=== PATIENT | male | born 1965 | race Caucasian/White ===

== ENCOUNTER → 2017-09-13 | Outpatient (CLI) | payer BC ==
--- NOTE | 2017-09-13 12:50 | Diagnostic Imaging Report ---
PROCEDURE: MRI lumbar spine. TECHNIQUE: Multiplanar, multisequence MRI of the lumbar spine was performed without contrast. INDICATION: Back pain. FINDINGS: There is satisfactory alignment of the lumbar spine. The vertebral body heights are preserved. There is disc desiccation at L3/L4 level. Minimal disc height loss at this level is seen. There is mild disc height loss at L5/S1. At L4/L5, there is evidence of posterior fusion hardware with susceptibility artifact seen. Anterior fusion is seen with suggestion of osseous bridging between the 2 vertebral bodies. The cauda equina and conus medullaris appear grossly unremarkable. There is prominent endplate edema around L5/S1 level. T12/L1: There is no disc herniation. Mild facet hypertrophy is seen. No central canal, lateral recess or foraminal stenosis. L1/L2: There is no disc herniation. There is bilateral moderate facet hypertrophy. No central canal, lateral recess or foraminal stenosis. L2/L3: There is no disc herniation. There is mild facet hypertrophy. No central canal or lateral recess stenosis. No foraminal stenosis. L3/L4: There is a diffuse disc bulge. Bilateral moderate facet hypertrophy is seen. No central canal stenosis. There is bilateral mild lateral recess stenosis. There is bilateral mild foraminal stenosis. L4/L5: Fusion changes between the vertebral bodies are seen. No remaining central canal stenosis is seen. There is mild left lateral recess stenosis suggested with an impression upon the thecal sac from intermediate signal tissue which could relate to scarring. No remaining disc fragment or definite significant osteophyte is evident. The foramina demonstrate bilateral mild stenosis. L5/S1: There is a central disc protrusion without significant spinal canal stenosis. No lateral recess stenosis. The foramina demonstrate bilateral moderate stenoses. IMPRESSION: There is bilateral moderate foraminal stenosis at L5/S1. Post fusion changes at L4/L5 level are also seen. No significant spinal canal stenosis is present at any level. Dictated by: Dictated on workstation # [id number]
--- NOTE | 2017-09-13 13:06 | Diagnostic Imaging Report ---
Multiplanar, multisequence MRI of the thoracic spine. INDICATION: Back pain. FINDINGS: There is satisfactory alignment of the posterior spinal line. The vertebral body heights are preserved. There is minimal desiccation in the mid thoracic spine. The spinal cord is normal in caliber, contour and signal. The bone marrow signal is generally normal except for mild endplate edema along the anterior aspect of the T5-T6 disc. T6-T7: There is a left paracentral focal disc extrusion with no significant associated spinal canal stenosis or cord compression. T7-T8: There is a minimal central disc protrusion with no significant spinal canal stenosis or cord compression. T11-T12: There is an annular tear posteriorly and a left paracentral disc protrusion with minimal cranial migration component. No significant spinal canal stenosis or cord compression. The neural foramina are patent at all levels. IMPRESSION: Mild disc herniations in the mid and lower thoracic spine as described. No significant spinal canals stenosis or cord compression at any level. Dictated by: Dictated on workstation # [id number]
--- NOTE | 2017-09-13 13:16 | Diagnostic Imaging Report ---
PROCEDURE: MR imaging cervical spine without contrast. TECHNIQUE: Multiplanar, multisequence MR imaging of the cervical spine was performed without contrast. INDICATION: Neck pain. FINDINGS: There is straightening of the cervical spine. There is minimal posterior translation of C5 over C6. The vertebral body heights are preserved. There is disc desiccation seen at all levels. No significant marrow signal abnormality is seen. The spinal cord has normal caliber, contour, and signal. The foramen magnum and the upper cervical canal are widely patent. C2-C3: No disc herniation, no spinal canal or foraminal stenosis. C3-C4: No disc herniation, no spinal canal or foraminal stenosis. C4-C5: There is a mild right paracentral disc spur complex with no significant spinal canal stenosis. The foramina demonstrate bilateral kujvtuqr-ce-houqec stenosis. C5-C6: There is a prominent disc spur complex with associated qbpuherw-rt-mwtbyx spinal canal stenosis reducing the AP dimension of the canal to 6.8 mm and with associated minimal compression of the spinal cord. No cord signal abnormality or edema is evident. There is bilateral severe foraminal stenosis from uncovertebral and facet hypertrophy seen. C6-C7: No disc herniation, no spinal canal or foraminal stenosis. C7-T1: Unremarkable. IMPRESSION: There is hxerrnhj-yg-pmcozs spinal canal stenosis at the C5-C6 level with minimal cord compression. No cord signal abnormality. There is also bilateral severe foraminal stenosis at this level. Dictated by: Dictated on workstation # [id number]
== END ==
LOC: RAD 07:40
PROVIDERS: ATTEND Family Medicine
DX: M54.2 Cervicalgia (principal); M54.6 Pain in thoracic spine; M54.5 Low back pain
CPT/HCPCS: 72141; 72146; 72148

== ENCOUNTER → 2020-07-20 | Outpatient (CLI) | payer BC ==
--- NOTE | 2020-07-20 11:09 | Diagnostic Imaging Report ---
PROCEDURE: MRI lumbar spine. TECHNIQUE: Multiplanar, multisequence MRI of the lumbar spine was performed without contrast. INDICATION: Chronic low back pain. Patient has had prior lumbar spine surgery. COMPARISON: Correlation is made with prior MRI of the lumbar spine from 09/13/2017. FINDINGS: Curvature and alignment of the lumbar spine is normal. Vertebral body heights are maintained. No acute compression fracture is identified. No geographic marrow lesion is identified. There are postoperative changes of posterior instrumented fusion with vertical stabilization rods and pedicle screws transfixing the L4-L5 level. This does create moderate susceptibility artifact. There is some loss of height and signal intensity to the L3-L4 disc compatible with degenerative disc disease. This is similar to prior exam. The conus is unremarkable at the L1 level. T12-L1: Central canal is widely patent. Neural foramina are patent. L1-T2: Central canal is widely patent. Neural foramina appear patent. L2-L3: Central canal is patent. Neural foramina are patent. L3-L4: Broad-based disc/osteophyte complex flattens the ventral thecal sac. There is significant narrowing of the lateral recesses bilaterally. There is also moderate bilateral neural foraminal stenosis. L4-L5: Central canal appears widely patent. There appears to be lateral recess narrowing bilaterally. Neural foramina are patent. L5-S1: Central canal is patent. Dmro-nj-eknbnqfs bilateral neural foraminal stenosis is noted. Paraspinous tissues are unremarkable. IMPRESSION: 1. Postoperative changes of L4-L5 posterior instrumented fusion. 2. Lumbar spondylosis with mild lateral recess and neural foraminal narrowing described level by level above. Overall appearance of the lumbar spine is very similar to prior exam from 09/13/2017. Dictated by: Dictated on workstation # [id number]
== END ==
LOC: RAD 09:30
PROVIDERS: ATTEND Family Medicine
DX: M47.816 Spondylosis without myelopathy or radiculopathy, lumbar region (principal); M48.07 Spinal stenosis, lumbosacral region; M51.36 Other intervertebral disc degeneration, lumbar region; Z98.890 Other specified postprocedural states
CPT/HCPCS: 72148

== ENCOUNTER → 2022-03-09 | Outpatient (CLI) | payer BC ==
[~2022-03-09] VITALS: Ht 180 cm; Wt 106.8 kg
[~2022-03-09] MED LIST: ACETAMINOPHEN 500 MG TAB (TYLENOL) PO PRN; ASPI-999 PO; BEBTELOVIMAB 175 MG/2 ML VIAL IV ONE; EPINEPHrine INJECTION 1 MG/ML AMP IM PRN; MULT-974 PO; ONDANSETRON 4 MG/2 ML (SDV) Z0FRAN IV PRN; diphenhydrAMINE 50 MG/ML INJ (BENADRYL) IV PRN
[2022-03-09 09:00] VITALS: BP 132/87
[2022-03-09 09:05] VITALS: BP 132/87
[2022-03-09 10:38] VITALS: BP 125/79
== END ==
LOC: INFUSION 08:45
PROVIDERS: ATTEND Nurse Practitioner Family
DX: U07.1 COVID-19 (principal)

== ENCOUNTER 2022-03-23 05:41 | Outpatient (CLI) | payer BC ==
[~2022-03-23] VITALS: Ht 180.3 cm; Wt 106.8 kg
[2022-03-27] MEDS ORDERED: ASPI-999 PO (16:17)
[2022-03-27] MEDS ORDERED: MULT-974 PO (16:17)
== END 2022-03-27 16:45 | disposition home or self-care (01) ==
LOC: PREOP 05:41
PROVIDERS: ATTEND Surgery
DX: Z01.818 Encounter for other preprocedural examination (principal)

== ENCOUNTER 2022-03-29 18:23 | Emergency (ER) | payer BC ==
[~2022-03-29] VITALS: Ht 180 cm; Wt 106.5 kg
[~2022-03-29 18:23] MED LIST changes: -ACETAMINOPHEN 500 MG TAB (TYLENOL) PO PRN; -BEBTELOVIMAB 175 MG/2 ML VIAL IV ONE; -EPINEPHrine INJECTION 1 MG/ML AMP IM PRN; -ONDANSETRON 4 MG/2 ML (SDV) Z0FRAN IV PRN; -diphenhydrAMINE 50 MG/ML INJ (BENADRYL) IV PRN
[2022-03-29] MEDS ORDERED: KETOROLAC 30 MG/ML VIAL IVP STA (18:33)
--- NOTE | 2022-03-29 18:39 | ED Abdominal Pain ---
General Chief Complaint: Abdominal/GI Problems Stated Complaint: HERNIA Source of Information: Patient History of Present Illness Date Seen by Provider: March 29, 2022 Time Seen by Provider: 18:29 Initial Comments PT ARRIVES VIA POV STATES HE WAS DRIVING HOME FROM [place] AND HAD SUDDEN SEVERE PAIN IN LOWER ABDOMEN/GENITAL/TESTICULAR/GROIN AREA, RADIATING UP TO LEFT FLANK OCCURRED AROUND 1700 PAIN WAS EXCRUCIATING ABOUT 30 MINUTES AGO, IS NOT GONE BUT IS BETTER NOW. RATES PAIN 8/10 AT WORST, 5/10 NOW NO NAUSEA/VOMITING NO URINARY SYMPTOMS NO FEVER PT IS SCHEDULED TO HAVE AN UMBILICAL HERNIA REPAIR BY DR. GATICA AT 0700 IN THE MORNING. THIS PAIN TODAY IS NOT IN UMBILICAL AREA NO HISTORY OF SIMILAR TOOK SIMETHICONE WITHOUT RELIEF. PCP: DR. ZULEYKA SAM Allergies and Home Medications Allergies Coded Allergies: Penicillins (Verified Allergy, Unknown, heart burn, 03/27/22) meperidine (Verified Allergy, Unknown, dry heaving, 03/27/22) Patient Home Medication List Home Medication List Reviewed: Yes Aspirin (Aspirin) 81 Mg Tab.chew, 81 MG PO DAILY, (Reported) Entered as Reported by: KEVIN JOSE on 03/27/221616 Hydrocodone Bit/Acetaminophen (HYDROcodone/APAP 7.5/325 TAB) 1 Ea Tablet, 1 EA PO Q4-6 PRN for PAIN Prescribed by: KRISTINE ANGEL on 03/29/221913 Ketorolac Tromethamine (Ketorolac Tromethamine) 10 Mg Tablet, 10 MG PO Q6H Prescribed by: KRISTINE ANGEL on 03/29/221912 Levofloxacin (Levofloxacin) 500 Mg Tablet, 500 MG PO DAILY Prescribed by: KRISTINE ANGEL on 03/29/221912 Multivitamin (Multi-Vitamin Daily) 1 Each Tablet, 1 EACH PO DAILY, (Reported) Entered as Reported by: KEVIN JOSE on 03/27/221616 Ondansetron (Ondansetron Odt) 8 Mg Tab.rapdis, 8 MG PO Q4H PRN for NAUSEA/VOMITING Prescribed by: KRISTINE ANGEL on 03/29/221912 Tamsulosin HCl (Flomax) 0.4 Mg Cap, 0.4 MG PO DAILY Prescribed by: KRISTINE ANGEL on 03/29/221912 Review of Systems Review of Systems Constitutional: no symptoms reported Respiratory: No Symptoms Reported Cardiovascular: No Symptoms Reported Gastrointestinal: See HPI, Abdominal Pain Genitourinary: See HPI Musculoskeletal: see HPI, back pain Skin: no symptoms reported Psychiatric/Neurological: No Symptoms Reported Endocrine: No Symptoms Reported Hematologic/Lymphatic: No Symptoms Reported Past Gdtjdar-Mihqtu-Eqexai Hx Patient Social History Tobacco Use?: No Substance use?: No Alcohol Use?: No Seasonal Allergies Seasonal Allergies: Yes Past Medical History Surgeries: Yes (BACK SX X3, ELDER FUNDOPLICATION) Abdominal, Orthopedic Respiratory: Yes (COVID-19 -[place] WITH MAB INFUSION 03/09/22) Sleep Apnea Currently Using CPAP: Yes Cardiac: No Neurological: No Reproductive Disorders: No Sexually Transmitted Disease: No Genitourinary: No Gastrointestinal: Yes (UMBILICAL HERNIA) Abdominal Hernia, Gastroesophageal Reflux, Hiatal Hernia Musculoskeletal: No Endocrine: No HEENT: No Cancer: Yes Skin Did You Recieve Any Treatments: Yes What Type of Treatment Did You: Surgical Intervention Psychosocial: No Integumentary: No Blood Disorders: No Adverse Reaction/Blood Tranf: No Family Medical History PAST SURGICAL HISTORY: -L4-L5 FUSION -LUMBAR DISCECTOMY -C4-C5 FUSION -LAP ELDER FUNDOPLICATION Physical Exam Vital Signs Vital Signs - First Documented 03/29/22 18:30 Temp 36.5 Pulse 95 Resp 20 B/P (MAP) 167/118 (134) Pulse Ox 96 O2 Delivery Room Air Capillary Refill : Height/Weight/BMI Height: 5'10" Weight: 200lbs. oz. [id number]; 32.85 BMI Method: General Appearance: WD/WN, no apparent distress, other (SITTING ON SIDE OF BED, DOES NOT APPEAR TO BE IN ANY DISCOMFORT OR DISTRESS AT THIS TIME) Respiratory: normal breath sounds, no respiratory distress, no accessory muscle use Cardiovascular: regular rate, rhythm, no murmur Gastrointestinal: normal bowel sounds, non tender, soft, no organomegaly, no pulsatile mass, hernia (SMALL, SOFT, PARTIALLY REDUICIBLE UMBILICAL HERNIA, NON- TENDER, NON-INFLAMED. ) Extremities: normal inspection Back: normal inspection, no CVA tenderness Neurologic/Psychiatric: online journalist II-XII nml as tested, no motor/sensory deficits, alert, normal mood/affect, oriented x 3 Skin: normal color, warm/dry; No rash Progress/Results/Core Measures Results/Orders Lab Results Laboratory Tests Test 03/29/22 18:36 03/29/22 19:19 Range/Units White Blood Count 6.5 4.3-11.0 10^3/uL Red Blood Count 5.40 4.30-5.52 10^6/uL Hemoglobin 16.8 13.3-17.7 g/dL Hematocrit 48 40-54 % Mean Corpuscular Volume 89 80-99 fL Mean Corpuscular Hemoglobin 31 25-34 pg Mean Corpuscular Hemoglobin Concent 35 32-36 g/dL Red Cell Distribution Width 12.2 10.0-14.5 % Platelet Count 194 130-400 10^3/uL Mean Platelet Volume 10.2 9.0-12.2 fL Immature Granulocyte % (Auto) 0 % Neutrophils (%) (Auto) 69 42-75 % Lymphocytes (%) (Auto) 23 12-44 % Monocytes (%) (Auto) 7 0-12 % Eosinophils (%) (Auto) 1 0-10 % Basophils (%) (Auto) 0 0-10 % Neutrophils # (Auto) 4.5 1.8-7.8 10^3/uL Lymphocytes # (Auto) 1.5 1.0-4.0 10^3/uL Monocytes # (Auto) 0.4 0.0-1.0 10^3/uL Eosinophils # (Auto) 0.1 0.0-0.3 10^3/uL Basophils # (Auto) 0.0 0.0-0.1 10^3/uL Immature Granulocyte # (Auto) 0.0 0.0-0.1 10^3/uL Sodium Level 141 135-145 MMOL/L Potassium Level 4.1 3.6-5.0 MMOL/L Chloride Level 106 98-107 MMOL/L Carbon Dioxide Level 21 21-32 MMOL/L Anion Gap 14 5-14 MMOL/L Blood Urea Nitrogen 22 H 7-18 MG/DL Creatinine 1.52 H 0.60-1.30 MG/DL Estimat Glomerular Filtration Rate 54 BUN/Creatinine Ratio 14 Glucose Level 102 70-105 MG/DL Calcium Level 9.9 8.5-10.1 MG/DL Corrected Calcium 8.5-10.1 MG/DL Total Bilirubin 0.4 0.1-1.0 MG/DL Aspartate Amino Transf (AST/SGOT) 30 5-34 U/L Alanine Aminotransferase (ALT/SGPT) 35 0-55 U/L Alkaline Phosphatase 94 40-136 U/L Total Protein 8.1 6.4-8.2 GM/DL Albumin 4.7 H 3.2-4.5 GM/DL Amylase Level 87 25-125 U/L Lipase 69 8-78 U/L Urine Color YELLOW Urine Clarity CLEAR Urine pH 5.5 5-9 Urine Specific [place] 1.025 H 1.016-1.022 Urine Protein NEGATIVE NEGATIVE Urine Glucose (UA) NEGATIVE NEGATIVE Urine Ketones NEGATIVE NEGATIVE Urine Nitrite NEGATIVE NEGATIVE Urine Bilirubin NEGATIVE NEGATIVE Urine Urobilinogen 0.2 < = 1.0 MG/DL Urine Leukocyte Esterase NEGATIVE NEGATIVE Urine RBC (Auto) 1+ H NEGATIVE Urine RBC 2-5 H /HPF Urine WBC 5-10 H /HPF Urine Squamous Epithelial Cells NONE /HPF Urine Renal Epithelial Cells NONE /HPF Urine Crystals NONE /LPF Urine Bacteria NEGATIVE /HPF Urine Casts NONE /LPF Urine Mucus SMALL H /LPF Urine Culture Indicated NO My Orders Orders - KRISTINE ANGEL DO Ed Iv/Invasive Line Start (03/29/22 18:29) Amylase (03/29/22 18:29) Cbc With Automated Diff (03/29/22 18:29) Comprehensive Metabolic Panel (03/29/22 18:29) Lipase (03/29/22 18:29) Ua Culture If Indicated (03/29/22 18:29) Ct Abd/Pelvis Wo(Kidney Stone) (03/29/22 18:33) Acute Abd Series (03/29/22 18:33) Ed Iv/Invasive Line Start (03/29/22 18:33) Lactated Ringers (Lr 1000 Ml Iv Solution (03/29/22 18:45) Ketorolac Injection (Toradol Injection) (03/29/22 18:33) Tamsulosin Capsule (Flomax Capsule) (03/29/22 19:15) Hydrocodone/Apap 5/325 Tablet (Lortab 5 (03/29/22 19:15) Morphine Injection (Morphine Injection (03/29/22 19:04) Medications Given in ED Current Medications Medications Dose Ordered Sig/Andrew Route Start Time Stop Time Status Last Admin Dose Admin Acetaminophen/ Hydrocodone Bitart 1 ea ONCE ONCE PO 03/29/22 19:15 03/29/22 19:16 DC 03/29/22 19:30 1 EA Lactated Ringer's 1,000 ml @ 0 mls/hr Q0M ONCE IV 03/29/22 18:45 03/29/22 18:46 DC 03/29/22 18:39 0 MLS/HR Vital Signs/I&O 03/29/22 18:30 Temp 36.5 Pulse 95 Resp 20 B/P (MAP) 167/118 (134) Pulse Ox 96 O2 Delivery Room Air Progress Progress Note : Progress Note GIVEN IV FLUIDS AND TORADOL WITH MODERATE RELIEF OF PAIN--RATES PAIN 01/19 NOW GIVEN MORPHINE GIVEN FLOMAX AND HYDROCODONE Diagnostic Imaging Comments CT ABDOMEN/PELVIS--PER RADIOLOGIST REPORT AT 1904 FINDINGS: The heart is unremarkable. The lung bases are clear. A 0.4 cm calculus is seen in the distal left ureter with mild left-sided hydroureteronephrosis. No hydronephrosis on the right. The urinary bladder is nondistended. The liver, spleen, pancreas and adrenal glands have a normal appearance. There is no pathologically enlarged mesenteric or retroperitoneal adenopathy. The bowel loops are nondilated. The appendix is visualized in the right lower quadrant and has a normal appearance. There is no free fluid or free air. No acute osseous abnormalities. Posterior fusion changes are visualized at L4-L5. There is no free air, loculated collection or adenopathy in the pelvis. IMPRESSION: Obstructing calculus in the distal left ureter measuring 0.4 cm with mild left-sided hydroureteronephrosis. Reviewed: Reviewed by Me Departure Communication (Admissions) 1855--SPOKE WITH DR. SALTER, UROLOGIST, HE WILL SEE PT IN OFFICE IN FOLLOW UP 1899--SPOKE WITH DR. GATICA, AND UPDATED HIM ON PT'S CONDITION, WILL PROCEED WITH SURGERY TOMORROW SCHEDULED. Impression Primary Impression: Left ureteral calculus Additional Impression: Umbilical hernia Disposition: HOME, SELF-CARE Condition: Improved Departure-Patient Inst. Decision time for Depature: 19:05 Referrals: NARA GATICA CHAD C MD (PCP/Family) Primary Care Physician DAISY SALTER MD Patient Instructions: How to Strain Your Urine, Kidney Stone Diet, Kidney Stone, Adult ED, Umbilical Hernia, Adult Add. Discharge Instructions: LOTS OF CLEAR LIQUIDS STRAIN ALL URINE--RETURN ANY STONES TO DR. SALTER'S OFFICE CONTINUE WITH UMBILICAL HERNIA REPAIR SURGERY PLANNED FOR TOMORROW MORNING FOLLOW UP WITH DR. SALTER, UROLOGIST, FOR FURTHER CARE --CALL OFFICE IN THE MORNING TO SCHEDULE APPOINTMENT RETURN TO ER IF SYMPTOMS WORSEN All discharge instructions reviewed with patient and/or family. Voiced understanding. Scripts Levofloxacin (Levofloxacin) 500 Mg Tablet 500 MG PO DAILY, #7 TAB 0 Refills Prov: KRISTINE ANGEL DO 03/29/22 Ketorolac Tromethamine (Ketorolac Tromethamine) 10 Mg Tablet 10 MG PO Q6H for Pain, #15 TAB Prov: KRISTINE ANGEL DO 03/29/22 Hydrocodone Bit/Acetaminophen (HYDROcodone/APAP 7.5/325 TAB) 1 Ea Tablet 1 EA PO Q4-6 PRN for PAIN, #20 TAB Prov: KRISTINE ANGEL DO 03/29/22 Ondansetron (Ondansetron Odt) 8 Mg Tab.rapdis 8 MG PO Q4H PRN for NAUSEA/VOMITING, #10 TAB Prov: KRISTINE ANGEL DO 03/29/22 Tamsulosin HCl (Flomax) 0.4 Mg Cap 0.4 MG PO DAILY, #10 CAP Prov: KRISTINE ANGEL DO 03/29/22 KRISTINE ANGEL DO March 29, 2022 18:39
[2022-03-29 18:43] LABS: BASOPHILS % (AUTO) 0 % (0-10); EOSINOPHILS # (AUTO) 0.1 10^3/uL (0.0-0.3); EOSINOPHILS % (AUTO) 1 % (0-10); HEMATOCRIT 48 % (40-54); HEMOGLOBIN 16.8 g/dL (13.3-17.7); LYMPHOCYTES # (AUTO) 1.5 10^3/uL (1.0-4.0); LYMPHOCYTES % (AUTO) 23 % (12-44); MEAN CORPUSCULAR HEMOGLOBIN 31 pg (25-34); MEAN CORPUSCULAR HGB CONC 35 g/dL (32-36); MEAN CORPUSCULAR VOLUME 89 fL (80-99); MEAN PLATELET VOLUME 10.2 fL (9.0-12.2); MONOCYTES # (AUTO) 0.4 10^3/uL (0.0-1.0); MONOCYTES % (AUTO) 7 % (0-12); NEUTROPHILS # (AUTO) 4.5 10^3/uL (1.8-7.8); NEUTROPHILS % (AUTO) 69 % (42-75); PLATELET COUNT 194 10^3/uL (130-400); WHITE BLOOD COUNT 6.5 10^3/uL (4.3-11.0)
[2022-03-29] MEDS ORDERED: LACTATED RINGERS 1,000 ML IV ONE (18:45)
--- NOTE | 2022-03-29 19:03 | Diagnostic Imaging Report ---
PROCEDURE: CT urinary tract, rule out kidney stone. TECHNIQUE: Multiple contiguous axial images were obtained through the abdomen and pelvis without the use of intravenous contrast. Auto Exposure Controls were utilized during the CT exam to meet ALARA standards for radiation dose reduction. INDICATION: Flank pain. COMPARISON: None. FINDINGS: The heart is unremarkable. The lung bases are clear. A 0.4 cm calculus is seen in the distal left ureter with mild left-sided hydroureteronephrosis. No hydronephrosis on the right. The urinary bladder is nondistended. The liver, spleen, pancreas and adrenal glands have a normal appearance. There is no pathologically enlarged mesenteric or retroperitoneal adenopathy. The bowel loops are nondilated. The appendix is visualized in the right lower quadrant and has a normal appearance. There is no free fluid or free air. No acute osseous abnormalities. Posterior fusion changes are visualized at L4-L5. There is no free air, loculated collection or adenopathy in the pelvis. IMPRESSION: Obstructing calculus in the distal left ureter measuring 0.4 cm with mild left-sided hydroureteronephrosis. Dictated by: Dictated on workstation # [id number]
[2022-03-29] MEDS ORDERED: morphine INJ 10 MG/ML 1ML (SYR OR VIAL) IVP STA (19:04)
--- NOTE | 2022-03-29 19:05 | Diagnostic Imaging Report ---
EXAMINATION: Abdominal series and chest radiograph. HISTORY: Abd pain. COMPARISON: 03/29/2022. FINDINGS: Heart size and pulmonary vasculature are normal. The lungs are clear without consolidation, pleural effusion or pneumothorax. The osseous structures are intact. There is moderate amount of gas and stool throughout the colon. Nonobstructive bowel gas pattern. No radiopaque foreign body. The osseous structures are intact. Lumbar fusion hardware is present. IMPRESSION: No acute abnormality in the chest or abdomen. Dictated by: Dictated on workstation # [id number]
[2022-03-29 19:08] LABS: ALANINE AMINOTRANSFERASE 35 U/L (0-55); ALBUMIN 4.7 GM/DL (3.2-4.5); ALKALINE PHOSPHATASE 94 U/L (40-136); AMYLASE 87 U/L (25-125); BILIRUBIN,TOTAL 0.4 MG/DL (0.1-1.0); BUN/CREATININE RATIO 14; CALCIUM 9.9 MG/DL (8.5-10.1); CARBON DIOXIDE 21 MMOL/L (21-32); CHLORIDE 106 MMOL/L (98-107); CREATININE SERUM 1.52 MG/DL (0.60-1.30); GFR ESTIMATED 54; GLUCOSE 102 MG/DL (70-105); LIPASE 69 U/L (8-78); POTASSIUM 4.1 MMOL/L (3.6-5.0); SODIUM 141 MMOL/L (135-145); TOTAL PROTEIN 8.1 GM/DL (6.4-8.2)
[2022-03-29] MEDS ORDERED: HYDR-34 PO (19:13)
[2022-03-29] MEDS ORDERED: LEVO500T81 PO (19:13)
[2022-03-29] MEDS ORDERED: KETO10TA PO (19:13)
[2022-03-29] MEDS ORDERED: TMSL.4C PO (19:13)
[2022-03-29] MEDS ORDERED: ONDA8TAB13 PO (19:13)
[2022-03-29] MEDS ORDERED: HYDROcodone/APAP 5 MG/325 MG (LORTAB) TAB PO ONE (19:15)
[2022-03-29] MEDS ORDERED: TAMSULOSIN 0.4 MG (FLOMAX) CAP PO SCH (19:15)
[2022-03-29 19:24] LABS: BILIRUBIN,URINE NEGATIVE (NEGATIVE); CLARITY,URINE CLEAR; COLOR,URINE YELLOW; GLUCOSE, URINE (UA) NEGATIVE (NEGATIVE); KETONES,URINE NEGATIVE (NEGATIVE); LEUKOCYTE ESTERASE ,URINE NEGATIVE (NEGATIVE); NITRITE,URINE NEGATIVE (NEGATIVE); PH,URINE 5.5 (5-9); PROTEIN,URINE NEGATIVE (NEGATIVE)
[2022-03-29 19:35] LABS: BACTERIA,URINE NEGATIVE /HPF
[2022-03-29 19:43] VITALS: BP 166/109
== END 2022-03-29 19:43 | disposition home or self-care (01) ==
LOC: EDUNIT# 18:23 → ER 18:26
DX: K42.9 Umbilical hernia without obstruction or gangrene (principal); N13.2 Hydronephrosis with renal and ureteral calculous obstruction; G47.30 Sleep apnea, unspecified; Z99.89 Dependence on other enabling machines and devices; Z86.16 Personal history of COVID-19
CPT/HCPCS: 36415; 74022; 74176; 80053; 81000; 82150; 83690; 85025

== ENCOUNTER 2022-03-30 06:52 | Day surgery (SDC) | payer BC ==
[2022-03-30] VITALS (10 sets, daily range): BP systolic 119–152; BP diastolic 75–92
[~2022-03-30] VITALS: Ht 180 cm; Wt 106.5 kg
[~2022-03-30 06:52] MED LIST changes: +HYDR-34 PO; +KETO10TA PO; +LACTATED RINGERS 1,000 ML IV PRN; +LEVO500T81 PO; +ONDA8TAB13 PO; +TMSL.4C PO
[2022-03-30] MEDS ORDERED: proPOfol 200 MG/20 ML (DIPRIVAN) VIAL IV ONE (07:15)
[2022-03-30] MEDS ORDERED: fentaNYL INJ 100 MCG/2 ML AMP ONE (07:15)
[2022-03-30] MEDS ORDERED: LIDOCAINE PF 2% 5 ML (XYLOCAINE) VIAL ONE (07:15)
[2022-03-30] MEDS ORDERED: ROCURONIUM 50 MG/5 ML (ZEMURON) VIAL IV ONE (07:15)
[2022-03-30] MEDS ORDERED: MIDAZOLAM 2 MG/2 ML (VERSED) VIAL ONE (07:16)
[2022-03-30] MEDS ORDERED: LIDOCAINE/EPI 1%-1:200,000 (XYLOCAINE) 30 ML VIAL ONE (07:22)
[2022-03-30] MEDS ORDERED: ceFAZolin 2 GM IV Premixed 50 ML ONE (07:52)
--- NOTE | 2022-03-30 08:16 | Progress Note-Pre Operative ---
Pre-Operative Progress Note H&P Reviewed The H&P was reviewed, patient examined and no changes noted. Time Seen by Provider: 08:13 Date H&P Reviewed: March 30, 2022 Time H&P Reviewed: 08:13 Pre-Operative Diagnosis: Incarcerated umbilical hernia NARA GATICA DO March 30, 2022 08:16
[2022-03-30] MEDS ORDERED: GLYCOPYRROLATE 0.2 MG/ML (ROBINUL) 2 ML VIAL ONE (09:17)
[2022-03-30] MEDS ORDERED: NEOSTIGMINE 3 MG/3 ML VIAL ONE (09:17)
[2022-03-30] MEDS ORDERED: SEVOFLURANE (ULTANE) 15 ML INHAL SOLN ONE ×2 (09:20→09:21)
--- NOTE | 2022-03-30 09:25 | Progress Note-Post Operative ---
Post-Operative Progess Note Surgeon (s)/Sen[employer] Insight Manager (s) Surgeon NARA GATICA DO Sen[employer] Insight Manager: Leisa Pre-Operative Diagnosis Incarcerated umbilical hernia Post-Operative Diagnosis Incarcerated Inc/Ventral hernia Incarcerated umb hernia Procedure & Operative Findings Date of Procedure 03/30/22 Procedure Performed/Findings 1) Laparoscopic Inc/Ventral Herniarraphy with mesh placement 2) Laparoscopic Umbilical Herniarrapy with mesh placement COMPLICATIONS: None. INDICATIONS: The patient is a 56, male with an [incarcerated] hernia, which has continued to increase in size and cause discomfort. The patient was explained the risk and benefits of the procedure and wished to proceed with the procedure. Consent was signed on the chart. DESCRIPTION OF PROCEDURE: The patient was taken into the operating suite, prepped and draped in sterile fashion. Surgical pause was performed. Local anesthetic was infiltrated in left upper quadrant. A #11 blade scalpel was used to make a small skin incision. Cautery was used to dissect down to the fascia, which was then scored and divided the muscle, went through the posterior sheath and a balloon trocar was inserted into the abdomen. The abdomen was then insufflated. Upon entering noted adhesions and what looked like an upper incarcerated hernia. Pushed on the abdomen and found it to be right at previous incision site from Hiatal hernia repair. A 5mm trocar was placed in the right lower quadrant and then the adhesions were taken down with a Ligasure and finally able to place final 5 mm trocar in left lower quadrant. Preperitoneal fat was taken down with the Ligasure and both hernias were exposed. Able to get the incarcerated fat out of both hernias. A 6 x 8 inch Echo Ventra light oval mesh was then inserted in the abdomen grabbed through a stab incision. The balloon was inflated on the mesh. Circumferential tacks were placed with a SecureStrap Tacker. The balloon was then removed and inner crown was created as well. The mesh was tacked with pressure being decreased. The 12 mm fascial defect was then closed using 0 Vicryl. The abdomen was then desufflated,the trocars were removed. The skin was then closed using 4-0 Monocryl in a running subcuticular fashion. The abdomen was washed and dried and Skin Affix was placed over the incisions. The patient tolerated procedure well without any complications. She was taken to recovery room in stable condition. Dr. De La Fuente assisted on this case helping to make incisions, close incisions, identify anatomy and hold anatomy out of the way. Anesthesia Type GET Estimated Blood Loss Estimated blood loss (mL): scant Specimens/Packing Specimens Removed hernia contents NARA GATICA DO March 30, 2022 09:25
--- NOTE | 2022-03-30 09:27 | Discharge Inst-Surgical ---
Discharge Inst-Surgical Depart Medication/Instructions New, Converted or Re-Newed RX: Other (Use meds from ER) Patient Instructions Follow up Appt: Make appointment for 1 week. [phone] Instructions: No lifting greater than 20 pounds. No strenuous activity. May shower in 24 hours, no tub bath or soaking. Use incentive spirometer at home as directed. No Smoking Skin/Wound Care: May remove bandages in am. You need to leave the Dermabond on incision it will fall off on it's own. Symptoms to Report: Appetite Changes, Extremity Discoloration, Numbness/Tingling, Swelling Increased, Bleeding Excessive, Eyesight Changes, Pain Increased, Urine Color Change, Constipation(Persistent), Fever over 101 degree F, Pain/Pressure in chest, Urinating Difficulty, Cough Up/Vomit Blood, Heart Beat Irreg/Pounding, Pain/Pressure in jaw, Cramps in feet or legs, Lightheadedness, Pain/Pressure in shoulder, Diarrhea(Persistent), Memory Changes Suddenly, Questions/Concerns, Weight gain consecutive days, Dizziness/Fainting, Nausea/Vomiting, Shortness of Breath, Weight gain over 2 pounds If questions or concerns contact your physician Or seek help at emergency department. Activity Activity as Tolerated: Yes Activity Instructions: Avoid Stress to Incision Driving Instructions: No Driving/Refer to Dr. Lord Discharge Diet: No Restrictions Diet After 24 Hours: Clear Liquid if Nauseous If Any Problems/Questions/Issu: Contact Your Physician, Go to Emergency Room Skin/Wound Care Infection Signs and Symptoms: Increased Redness, Foul Odor of Wound, Increased Drainage, Skin Itchy or Has a Rash, Increased Swelling, Temperature Above 101 F Wound Care Comment: heating pad to shoulder or neck tonight for pain Bathing Instructions: Shower Stitches/Lexis/Dermabond Dis: Dermabond Ice Pack: Ice On and Off Site NARA GATICA DO March 30, 2022 09:27
--- NOTE | 2022-03-30 09:38 | Anesthesia-General Post-Op ---
General Patient Condition Mental Status/LOC: Same as Preop Cardiovascular: Satisfactory Nausea/Vomiting: Absent Respiratory: Satisfactory Pain: Controlled Complications: Absent Post Op Complications Complications None Follow Up Care/Instructions Patient Instructions None needed. Anesthesia/Patient Condition Patient Condition Patient is doing well, no complaints, stable vital signs, no apparent adverse anesthesia problems. No complications reported per nursing. CHARLOTTE VIRAMONTES CRNA March 30, 2022 09:38
[2022-03-30] MEDS ORDERED: ONDANSETRON 4 MG/2 ML (SDV) Z0FRAN IVP PRN (09:45)
[2022-03-30] MEDS ORDERED: HYDROmorphone 2 MG/ML VIAL (DILAUDID) IV ONE (09:45)
[2022-03-30] MEDS ORDERED: fentaNYL INJ 100 MCG/2 ML AMP IVP ONE (09:45)
[2022-03-30] MEDS ORDERED: HYDROcodone/APAP 5 MG/325 MG (LORTAB) TAB PO ONE (10:45)
[2022-03-30] MEDS ORDERED: HYDROcodone/APAP 5 MG/325 MG (LORTAB) TAB ONE (10:46)
== END 2022-03-30 11:40 | disposition home or self-care (01) ==
LOC: SDC 06:52
PROVIDERS: ATTEND Surgery
DX: K43.6 Other and unspecified ventral hernia with obstruction, without gangrene (principal); K42.0 Umbilical hernia with obstruction, without gangrene; K66.0 Peritoneal adhesions (postprocedural) (postinfection); E66.9 Obesity, unspecified; G47.33 Obstructive sleep apnea (adult) (pediatric); Z68.33 Body mass index [BMI] 33.0-33.9, adult; Z99.89 Dependence on other enabling machines and devices; Z87.891 Personal history of nicotine dependence
CPT/HCPCS: 49653; 87081; C1781

== ENCOUNTER → 2023-08-27 | Outpatient (CLI) | payer BC ==
[~2023-08-27] MED LIST changes: -LACTATED RINGERS 1,000 ML IV PRN; +LEVO-55 PO; -LEVO500T81 PO
--- NOTE | 2023-08-27 15:46 | Diagnostic Imaging Report ---
PROCEDURE: MRI lumbar spine. TECHNIQUE: Multiplanar, multisequence MRI of the lumbar spine was performed without contrast. INDICATION: Chronic lower back pain. Previous lumbar surgery. COMPARISON: 07/20/2020 FINDINGS: The patient is status post previous laminectomy and posterior fusion at L4-L5. Evaluation of the integrity of the hardware is suboptimal due to metallic susceptibility artifact and MR modality, but static alignment at this level is maintained. The remaining lumbar static alignment is preserved, as well. There is no significant anteroretrolisthesis. There is no evidence of jumped facets. Vertebral body heights are maintained. There is no acute fracture. Evaluation of the marrow signal demonstrates mild Modic type endplate changes at L3-L4. There is also mild multilevel intervertebral disc height loss, greatest at L3-L4. Intervertebral disc spacer is also present at L4-L5 and appears appropriately positioned. The visualized portions of the distal cord are unremarkable. The conus terminates at approximately the L1 level. No abnormal intrathecal filling defects are seen. Pre and paravertebral soft tissue structures are unremarkable. Axial images demonstrate the following: T12-L1 through L2-L3: There is no large disc bulge or focal protrusion. There is no significant spinal canal or neuroforaminal stenosis. L3-L4: There is broad-based posterior disc bulge and mild bilateral ligamentum flavum laxity and facet arthropathy. As a result, there is mild narrowing of the spinal canal and bilateral neuroforamina. L4-L5: Postsurgical changes as above. There is no significant spinal canal or neuroforaminal stenosis. L5-S1: There is bilateral facet arthropathy, but no large disc bulge or focal protrusion. Additionally, there is no significant spinal canal or neuroforaminal stenosis. IMPRESSION: 1. Postsurgical changes at L4-L5, as above. 2. No acute fracture or dislocation. 3. Mild multilevel degenerative changes, but no significant spinal canal or neuroforaminal stenosis. Dictated by: Dictated on workstation # [id number]
== END ==
LOC: RAD 14:39
PROVIDERS: ATTEND Family Medicine
DX: M51.16 Intervertebral disc disorders with radiculopathy, lumbar region (principal); M47.26 Other spondylosis with radiculopathy, lumbar region; M47.27 Other spondylosis with radiculopathy, lumbosacral region; Z98.890 Other specified postprocedural states
CPT/HCPCS: 72148